=== PATIENT | female | born 1945 | race Caucasian/White ===

== ENCOUNTER 2020-12-09 11:26 | Emergency (ER) | payer MEDICARE ==
[~2020-12-09] VITALS: Ht 165.1 cm; Wt 62.6 kg
--- NOTE | 2020-12-09 11:26 | NUR ---
PT [id number], FRM HOME, C/O GENERALIZED WEAKNESS S/P FALL, -KO. PT IS AAOX4, NOT IN RESPIRATORY DISTRESS, V/S STABLE, KEPT RESTED AND COMFORTABLE. WILL CONTINUE TO MONITOR.
--- NOTE | 2020-12-09 11:31 | NUR ---
SEEN AND EXAMINED BY .
--- NOTE | 2020-12-09 11:50 | NUR ---
IV LINE ESTABLISHED BLOOD DRAWN AND SENT TO LAB.
--- NOTE | 2020-12-09 12:00 | NUR ---
URINE SPECIMEN COLLECTED AND SENT TO LAB.
[2020-12-09 12:04] LABS: BASOPHILS # (AUTO) 0.1 K/uL (0.0-0.2); BASOPHILS % (AUTO) 0.8 % (0.0-2.0); EOSINOPHILS % (AUTO) 0.9 % (0.0-6.0); HEMATOCRIT 37 % (33-45); HEMOGLOBIN 12.5 g/dL (11.5-14.8); LYMPHOCYTES # (AUTO) 1.6 K/uL (0.8-4.8); LYMPHOCYTES % (AUTO) 11.9 % (20.0-44.0); MEAN CORPUSCULAR HGB CONC 34 g/dl (31.0-36.0); MEAN CORPUSCULAR VOLUME 94 fL (82-100); MONOCYTES # (AUTO) 1.7 K/uL (0.1-1.30); MONOCYTES % (AUTO) 12.3 % (2.0-12.0); NEUTROPHILS # (AUTO) 10.2 K/uL (1.8-8.9); NEUTROPHILS % (AUTO) 74.1 % (43.0-81.0); PLATELET COUNT (AUTO) 292 K/uL (150-450); RED BLOOD CELL COUNT(AUTO) 3.96 MIL/uL (4.0-5.2); WHITE BLOOD COUNT (AUTO) 13.7 K/uL (4.3-11.0)
[2020-12-09 12:12] LABS: CALCIUM, SERUM 8.6 mg/dL (8.5-10.1); CARBON DIOXIDE 27 mmol/L (21-32); CHLORIDE 104 mmol/L (98-107); CREATININE 0.7 mg/dL (0.6-1.3); GLUCOSE 112 mg/dL (74-106); POTASSIUM 3.6 mmol/L (3.5-5.1); SODIUM SERUM 141 mmol/L (136-145); UREA NITROGEN, BLOOD 21 mg/dL (7-18)
--- NOTE | 2020-12-09 12:29 | NUR ---
MILITARY ANALYST AT BEDSIDE FOR XRAY.
[2020-12-09 12:48] LABS: BILIRUBIN,URINE SMALL (NEGATIVE); COLOR,URINE DARK YELLOW (YELLOW); LEUKOCYTE ESTERASE ,URINE NEGATIVE (NEGATIVE); NITRITE, URINE NEGATIVE (NEGATIVE); PROTEIN,URINE TRACE mg/dl (NEGATIVE); UGLUCOSE NEGATIVE (NEGATIVE); UROBILINOGEN,URINE 0.2 EU/dL (0.2)
--- NOTE | 2020-12-09 13:15 | NUR ---
PT ABLE TO WALK WITH OUT ASSISTANCE. AWARE.
[2020-12-09 13:16] LABS: BACTERIA,URINE Few /HPF (None Seen); SQUAMOUS EPITHELIAL CELL,UR Few /HPF (None Seen)
[2020-12-09] MEDS ORDERED: CEPH500C2 PO (13:25)
--- NOTE | 2020-12-09 13:34 | NUR ---
[facility] CALLED ETA 45 MINS. NKECHI
--- NOTE | 2020-12-09 14:10 | NUR ---
DAUGHTER AT BEDSIDE.
--- NOTE | 2020-12-09 14:20 | NUR ---
IV removed. Catheter intact and site benign. Pressure and 4x4 applied to site. No bleeding noted.
--- NOTE | 2020-12-09 14:23 | NUR ---
REPORT GIVEN TO EMT FOR PT TRANSFER BACK HOME. AT HOME AWARE AND DAUGHTER.
[2020-12-09 14:24] VITALS: BP 123/70
== END 2020-12-09 14:25 | disposition home or self-care (01) ==
LOC: ER 11:33
DX: N39.0 Urinary tract infection, site not specified (principal); Z88.2 Allergy status to sulfonamides; R53.1 Weakness; W19.XXXA Unspecified fall, initial encounter; Y93.89 Activity, other specified; Y92.098 Other place in other non-institutional residence as the place of occurrence of the external cause; Y99.8 Other external cause status
CPT/HCPCS: 36415; 70450-TC; 71045-TC; 80048-TC; 81001; 84484-TC; 85025-TC

== ENCOUNTER 2020-12-11 14:59 | Inpatient (IN) | payer MEDICARE ==
[~2020-12-11] VITALS: Ht 165.1 cm; Wt 62.3 kg
[~2020-12-11 14:59] MED LIST: CEPH500C2 PO
--- NOTE | 2020-12-11 15:20 | NUR ---
TO ER BED 1, AWAITING MD WARE
--- NOTE | 2020-12-11 15:25 | NUR ---
PATIENT CLEANED, PLACED ON MONITOR, SALINE LOCK ESTABLISHED, UNABLE TO OBTAIN BLOOD, LAB CALLED.
--- NOTE | 2020-12-11 16:00 | NUR ---
SEEN BY DR SILVA, ORDERS GIVEN, URINE SENT TO LAB
[2020-12-11 16:14] LABS: BASOPHILS # (AUTO) 0.1 K/uL (0.0-0.2); BASOPHILS % (AUTO) 0.5 % (0.0-2.0); EOSINOPHILS % (AUTO) 0.6 % (0.0-6.0); HEMATOCRIT 41 % (33-45); HEMOGLOBIN 13.6 g/dL (11.5-14.8); LYMPHOCYTES # (AUTO) 1.2 K/uL (0.8-4.8); LYMPHOCYTES % (AUTO) 9.3 % (20.0-44.0); MEAN CORPUSCULAR HGB CONC 33 g/dl (31.0-36.0); MEAN CORPUSCULAR VOLUME 95 fL (82-100); MONOCYTES # (AUTO) 1.4 K/uL (0.1-1.30); MONOCYTES % (AUTO) 11.1 % (2.0-12.0); NEUTROPHILS # (AUTO) 10.1 K/uL (1.8-8.9); NEUTROPHILS % (AUTO) 78.5 % (43.0-81.0); PLATELET COUNT (AUTO) 266 K/uL (150-450); RED BLOOD CELL COUNT(AUTO) 4.35 MIL/uL (4.0-5.2); WHITE BLOOD COUNT (AUTO) 12.9 K/uL (4.3-11.0)
[2020-12-11] MEDS ORDERED: MEMA10TA PO (16:17)
[2020-12-11] MEDS ORDERED: DONE10TA44 PO (16:17)
[2020-12-11] MEDS ORDERED: ANAS1TAB50 PO (16:17)
[2020-12-11 16:27] LABS: ALANINE AMINOTRANSFERASE 33 U/L (12-78); ALBUMIN 2.9 g/dL (3.4-5.0); ALCOHOL, BLOOD < 3 mg/dL (0-0); ALKALINE PHOSPHATASE 66 U/L (46-116); ASPARTATE AMINOTRANSFERASE 52 U/L (15-37); BILIRUBIN,DIRECT 0.2 mg/dL (0.0-0.2); BILIRUBIN,TOTAL 0.7 mg/dL (0.2-1.0); CALCIUM, SERUM 8.4 mg/dL (8.5-10.1); CARBON DIOXIDE 23 mmol/L (21-32); CHLORIDE 104 mmol/L (98-107); CREATININE 0.6 mg/dL (0.6-1.3); GLUCOSE 90 mg/dL (74-106); POTASSIUM 3.3 mmol/L (3.5-5.1); SODIUM SERUM 139 mmol/L (136-145); TOTAL PROTEIN, SERUM 6.5 g/dL (6.4-8.2); UREA NITROGEN, BLOOD 16 mg/dL (7-18)
[2020-12-11 16:40] LABS: ACETAMINOPHEN < 0 ug/ml (10-30)
[2020-12-11 17:02] LABS: BILIRUBIN,URINE Negative (NEGATIVE); COLOR,URINE YELLOW (YELLOW); LEUKOCYTE ESTERASE ,URINE Trace (NEGATIVE); NITRITE, URINE Positive (NEGATIVE); PH,URINE 5.5 (5.0-8.0); PROTEIN,URINE Trace mg/dl (NEGATIVE); UGLUCOSE Negative (NEGATIVE); UROBILINOGEN,URINE 0.2 EU/dL (0.2)
[2020-12-11 17:16] LABS: CREATINE KINASE, TOTAL 1209 U/L (26-192); THYROID STIMULATING HORMONE 1.262 uIU/mL (0.358-3.74)
[2020-12-11 17:31] LABS: BACTERIA,URINE Moderate /HPF (None Seen); SQUAMOUS EPITHELIAL CELL,UR Few /HPF (None Seen)
[2020-12-11] MEDS ORDERED: POTASSIUM CHLORIDE 20 MEQ TAB.PRT.SR PO ONE ×2 (17:49→18:00)
[2020-12-11] MEDS ORDERED: MEROPENEM 1,000 MG in IV NS 0.9% 100 ML IV ONE (18:00)
[2020-12-11] MEDS ORDERED: IV NS 0.9% 500 ML BAG IV ONE (18:30)
--- NOTE | 2020-12-11 18:49 | NUR ---
BED ASSIGNED IS 307-2
[2020-12-11] MEDS ORDERED: ACETAMINOPHEN 325 MG TABLET PO PRN (19:00)
[2020-12-11] MEDS ORDERED: Z GUARD REMEDY 2 OZ OINT TP PRN (19:00)
[2020-12-11] MEDS ORDERED: ZOLPIDEM TARTRATE 5 MG TABLET PO PRN (19:00)
[2020-12-11] MEDS ORDERED: MAG HYDROX/AL HYDROX/SIMETH 30 ML UDC PO PRN (19:00)
[2020-12-11] MEDS ORDERED: ONDANSETRON HCL/PF 4 MG/2 ML VIAL IVP PRN (19:00)
[2020-12-11] MEDS ORDERED: MAGNESIUM HYDROXIDE 30 ML UDC PO PRN (19:00)
--- NOTE | 2020-12-11 20:19 | NUR ---
REPORT GIVEN TO CHRISTINA AGUSTIN
--- NOTE | 2020-12-11 20:35 | NUR ---
MS IRONWORKER MACHINE OPERATOR NOTES REPORT RECEIVED FROM MATT ER NURSE. PATIENT TRANSFERRED ON THE FLOOR AT THIS TIME VIA GURNEY. ALERT AND ORIENTED TO NAME ONLY. WHEN ASKED QUESTIONS PATIENT SEEM TO BE SAYING "YES" TO EVERYTHING AND SEEMS CONFUSED. NO S/S OF APPARENT DISTRESS. NO C/O PAIN AT THIS TIME. PATIENT ADMITTED FOR IN PATIENT SERVICES, MED/SURG. ID BAND RENEWED AND ON PATIENT. BELONGINGS LIST DONE AND CHARTED. WOUND PICTURES TAKEN AND CHARTED. PATIENT HAS WEAVER CATHETER IN, DRAINING DARK YELLOW URINE. SAFETY IN PLACE: BED IN LOWEST, LOCKED POSITION. CALL LIGHT WITHIN REACH. NO NEEDS AT THIS TIME. WILL START WITH IV FLUIDS AND WILL CONTINUE TO MONITOR.
--- NOTE | 2020-12-11 20:35 | NUR ---
MS AUTOMOTIVE QUALITY ENGINEER NOTE PATIENT ADMITTING V/S FOLLOWS: BP- 135/61, P- 81 BPM, RR- 18 BPM, T- 98.1, 02 SAT- 99% ROOM AIR, WT- 137.5 LBS.
--- NOTE | 2020-12-11 20:40 | NUR ---
PT WAS TANSFERRED TO THIRD FLOOR UNDER ACLS
[2020-12-11 20:45] VITALS: BP 135/61
[2020-12-11] MEDS: IV NS 0.9% 1,000 ML IV PRN (21:22)
[2020-12-11] MEDS: CEFTRIAXONE 1 G in IV D5W 50 ML IV SCH (21:22)
[2020-12-11 22:24] VITALS: BP 135/61
[2020-12-12 04:00] VITALS: BP 119/75
[2020-12-12 06:43] LABS: BASOPHILS # (AUTO) 0.1 K/uL (0.0-0.2); BASOPHILS % (AUTO) 1.3 % (0.0-2.0); EOSINOPHILS % (AUTO) 2.2 % (0.0-6.0); HEMATOCRIT 38 % (33-45); HEMOGLOBIN 12.7 g/dL (11.5-14.8); LYMPHOCYTES # (AUTO) 1.6 K/uL (0.8-4.8); LYMPHOCYTES % (AUTO) 14.5 % (20.0-44.0); MEAN CORPUSCULAR HGB CONC 34 g/dl (31.0-36.0); MEAN CORPUSCULAR VOLUME 94 fL (82-100); MONOCYTES # (AUTO) 1.5 K/uL (0.1-1.30); MONOCYTES % (AUTO) 13.4 % (2.0-12.0); NEUTROPHILS # (AUTO) 7.8 K/uL (1.8-8.9); NEUTROPHILS % (AUTO) 68.6 % (43.0-81.0); PLATELET COUNT (AUTO) 292 K/uL (150-450); WHITE BLOOD COUNT (AUTO) 11.3 K/uL (4.3-11.0)
--- NOTE | 2020-12-12 06:52 | NUR ---
MS RN NOTES PATIENT IN BED. A/OX 1 ONLY TO NAME. NO S/S OF APPARENT DISTRESS. NO C/O PAIN AT THIS TIME. IV NS RUNNING @ 100CC/HR. WEAVER DRAINING CLEAR, DARK YELLOW URINE. BLE EDEMA NON-PITTING NOTED. WOUND PICTURE TAKEN AND CHARTED. SAFETY KEPT IN PLACE THE WHOLE SHIFT. ALL NEEDS ATTENDED. WILL ENDORSE CARE TO MORNING SHIFT RN.
[2020-12-12 07:24] LABS: CREATININE 0.6 mg/dL (0.6-1.3); PHOSPHORUS 2.7 mg/dL (2.5-4.9); POTASSIUM 3.4 mmol/L (3.5-5.1)
[2020-12-12 07:49] VITALS: BP 134/65
[2020-12-12] MEDS: IV NS 0.9% 1,000 ML IV PRN (09:09)
--- NOTE | 2020-12-12 09:29 | NUR ---
WOUND CARE CONSULT: PT PRESENTS WITH DISCOLORATION TO FEET AND ANKLES WITH RESOLVING EDEMA AND ABRASIONS TO BILATERAL ELBOWS, PRESENT ON ADMISSION. RECOMMENDATIONS MADE FOR SKIN PROTECTION AND WOUND CARE. DISCUSSED WITH NURSING STAFF. MD IN AGREEMENT WITH PLAN OF CARE. Addendum: 12/12/20 at 0931 by BRITT REED WNDNU CURRENT AGUILAR SCORE IS 17.
[2020-12-12] MEDS: MEMANTINE HCL 5 MG TABLET PO SCH ×2 (09:31→17:45)
[2020-12-12] MEDS: ANASTROZOLE 1 MG TABLET PO SCH (09:31)
[2020-12-12] MEDS: DONEPEZIL 5 MG TABLET PO SCH (09:31)
--- NOTE | 2020-12-12 10:00 | NUR ---
pt. confused and pulled out iv.to restart.
[2020-12-12] MEDS ORDERED: POTASSIUM CHLORIDE 20 MEQ TAB.PRT.SR PO SCH (12:30)
--- NOTE | 2020-12-12 14:06 | NUR ---
potassium replacement given.
--- NOTE | 2020-12-12 14:38 | NUR ---
DR. BATES CALLED WITH [facility]. [facility] AND [facility] ABN. LABS
--- NOTE | 2020-12-12 15:05 | NUR ---
iv restarted lt. forearm with 22 gauge angio.pt. tolerated well.
[2020-12-12 15:54] VITALS: BP 124/67
--- NOTE | 2020-12-12 16:57 | NUR ---
pulled out iv again,restart rt wrist #22 angio
--- NOTE | 2020-12-12 17:20 | NUR ---
due to pulling out of iv line,dr. fuller called.ok'd order for restraint.
--- NOTE | 2020-12-12 17:54 | NUR ---
due to restlessness,given tylenol 650 mg po.
--- NOTE | 2020-12-12 18:15 | NUR ---
just received call from pt. dompositive for mrsa in nares.
--- NOTE | 2020-12-12 18:24 | NUR ---
pt. pulled mittens off,now soft wrist restraints applied.
--- NOTE | 2020-12-12 19:54 | NUR ---
MS RN OPENING PATIENT IN BED WITH VISITORS IN THE ROOM. NO S/S OF APPARENT DISTRESS. NO C/O PAIN AT THE MOMENT. IV FLUID RUNNING @100 CC/HR. PATIENT WRIST RESTRAINTS NOTED TAKEN OFF THE PATIENT -- PATIENT RE-DIRECTABLE AT THE MOMENT BUT WILL CONTINUE TO MONITOR WITH THE RESTRAINT VACATION. SAFETY IN PLACE: BED IN LOWEST, LOCKED POSITION. CALL LIGHT WITHIN REACH. WILL CONTINUE TO MONITOR.
[2020-12-12 20:00] VITALS: BP 114/65
--- NOTE | 2020-12-12 20:11 | NUR ---
MS RN NOTES BACTROBAN OINT. NOT IN BEDSIDE OR THE PATIENT'S CASSETTE. CALLED THE PHARMACY AND THEY SAID THEY HAVE IT 10-20 MINUTES.
[2020-12-12] MEDS: CEFTRIAXONE 1 G in IV D5W 50 ML IV SCH (20:46)
[2020-12-12] MEDS: MUPIROCIN OINT 2% 22 GM TUBE NS SCH ×3 (20:59→21:12)
--- NOTE | 2020-12-12 21:20 | NUR ---
MS RN NOTES PATIENT GIVEN LATE DOSE OF BACTROBAN BECAUSE PHARMACY JUST BROUGHT IT UP.
[2020-12-13] MEDS: IV NS 0.9% 1,000 ML IV PRN (02:16)
[2020-12-13 06:25] LABS: BASOPHILS # (AUTO) 0.1 K/uL (0.0-0.2); BASOPHILS % (AUTO) 1.4 % (0.0-2.0); HEMATOCRIT 37 % (33-45); HEMOGLOBIN 12.7 g/dL (11.5-14.8); LYMPHOCYTES # (AUTO) 2.6 K/uL (0.8-4.8); LYMPHOCYTES % (AUTO) 26.6 % (20.0-44.0); MEAN CORPUSCULAR HGB CONC 34 g/dl (31.0-36.0); MEAN CORPUSCULAR VOLUME 93 fL (82-100); MONOCYTES # (AUTO) 1.5 K/uL (0.1-1.30); MONOCYTES % (AUTO) 15.6 % (2.0-12.0); NEUTROPHILS # (AUTO) 5.2 K/uL (1.8-8.9); NEUTROPHILS % (AUTO) 53.4 % (43.0-81.0); PLATELET COUNT (AUTO) 284 K/uL (150-450); WHITE BLOOD COUNT (AUTO) 9.8 K/uL (4.3-11.0)
[2020-12-13 07:01] LABS: CALCIUM, SERUM 7.8 mg/dL (8.5-10.1); CREATININE 0.6 mg/dL (0.6-1.3); POTASSIUM 3.4 mmol/L (3.5-5.1)
--- NOTE | 2020-12-13 07:04 | NUR ---
MS RN NOTES PATIENT IN BED. A/OX 1 ONLY TO NAME. NO S/S OF APPARENT DISTRESS. NO C/O PAIN AT THIS TIME. IV NS RUNNING @ 100CC/HR. WEAVER DRAINING CLEAR, DARK YELLOW URINE. PATIENT DID WELL WITHOUT THE MITTENS LAST NIGHT. SAFETY KEPT IN PLACE THE WHOLE SHIFT. ALL NEEDS ATTENDED. WILL ENDORSE CARE TO MORNING SHIFT RN.
[2020-12-13 08:00] VITALS: BP 124/60
--- NOTE | 2020-12-13 08:00 | NUR ---
MS RN OPENING RECEIVED PATIENT LYING IN BED, AWAKE. A/O X1 - PATIENT HAS DEMENTIA AND IS CONFUSED. STABLE ON ROOM AIR - NO SOB OR DISTRESS/DISCOMFORT NOTED. IV ACCESS TO RIGHT WRIST # 20 - RUNNING NS @ 100ML/HR. WEAVER CATHETER INTACT AND IN PLACE - DRAINING CLEAR, YELLOW URINE TO GRAVITY. PATIENT IS AMBULATORY WITH ASSIST. SAFETY MEASURES IN PLACE. CALL LIGHT WITHIN REACH. WILL CONTINUE TO MONITOR.
[2020-12-13] MEDS: DONEPEZIL 5 MG TABLET PO SCH (08:31)
[2020-12-13] MEDS: MUPIROCIN OINT 2% 22 GM TUBE NS SCH ×2 (08:31→20:25)
[2020-12-13] MEDS: MEMANTINE HCL 5 MG TABLET PO SCH ×2 (08:31→17:11)
[2020-12-13] MEDS: ANASTROZOLE 1 MG TABLET PO SCH (08:31)
[2020-12-13] MEDS ORDERED: POTASSIUM CHLORIDE 20 MEQ TAB.PRT.SR PO ONE (09:00)
[2020-12-13 16:00] VITALS: BP 147/59
--- NOTE | 2020-12-13 19:00 | NUR ---
MS RN CLOSING NOTE PATIENT CURRENTLY SITTING IN BED, AWAKE. A/O X1 - PATIENT HAS DEMENTIA AND IS CONFUSED - HAS GOTTEN OUT OF BED MULTIPLE TIMES THIS SHIFT SAYING SHE IS GOING HOME. STABLE ON ROOM AIR - NO SOB OR DISTRESS/DISCOMFORT NOTED. IV ACCESS TO RIGHT WRIST # 20 - RUNNING NS @ 100ML/HR. PATIENT PULLED OUT WEAVER CATHETER - CHARGE NURSE AND MD AWARE - PATIENT TO DISCHARGE IN AM SO WEAVER WAS D/C'D. PATIENT IS AMBULATORY WITH ASSIST. SAFETY MEASURES IN PLACE. CALL LIGHT WITHIN REACH. WILL ENDORSE TO DOOR SLINGER NURSE FOR BALWINDER.
--- NOTE | 2020-12-13 19:16 | NUR ---
CONTINUITY OF CARE Patient walking inside her room, appears anxious. Patient is A/O x1 to self only, Hx. Dementia. Reoriented and assisted back to bed. Oxygen saturation 96% on room air, no c/o sob. IVF not infusing, per RN report patient anxious, pacing in her room, unable to stay in bed lying or sitting. Recently on wrist restraints d/t pulling out tubes. Place call light within reach, bed alarm on, maintained safety.
[2020-12-13 20:00] VITALS: BP 146/64
[2020-12-13] MEDS: CEFTRIAXONE 1 G in IV D5W 50 ML IV SCH (20:22)
--- NOTE | 2020-12-13 21:30 | NUR ---
UNABLE TO SLEEP Patient trying to sleep, eyes closed but unable to sleep. Did not have a good sleep prior night per RN report. Given Ambien, will reassess.
[2020-12-14] MEDS: IV NS 0.9% 1,000 ML IV PRN (00:34)
--- NOTE | 2020-12-14 06:37 | NUR ---
END OF SHIFT REPORT Patient is A/O x1 to self only, Forgetful, with confusion. On IV Rocephin, afebrile. Slept well with Ambien, upon waking up, confused and pulled out IV peripheral line by herself, frequent reorientation needed. Plan for dc to SNF. Will endorse to oncoming RN.
[2020-12-14 06:46] LABS: BASOPHILS # (AUTO) 0.1 K/uL (0.0-0.2); BASOPHILS % (AUTO) 0.9 % (0.0-2.0); EOSINOPHILS % (AUTO) 2.5 % (0.0-6.0); HEMATOCRIT 40 % (33-45); HEMOGLOBIN 13.2 g/dL (11.5-14.8); LYMPHOCYTES # (AUTO) 2.5 K/uL (0.8-4.8); MEAN CORPUSCULAR HGB CONC 33 g/dl (31.0-36.0); MEAN CORPUSCULAR VOLUME 94 fL (82-100); MONOCYTES # (AUTO) 1.4 K/uL (0.1-1.30); MONOCYTES % (AUTO) 13.6 % (2.0-12.0); NEUTROPHILS # (AUTO) 6.1 K/uL (1.8-8.9); PLATELET COUNT (AUTO) 287 K/uL (150-450); RED BLOOD CELL COUNT(AUTO) 4.26 MIL/uL (4.0-5.2); WHITE BLOOD COUNT (AUTO) 10.3 K/uL (4.3-11.0)
[2020-12-14 07:27] LABS: CALCIUM, SERUM 8.2 mg/dL (8.5-10.1); CREATININE 0.6 mg/dL (0.6-1.3); POTASSIUM 3.4 mmol/L (3.5-5.1)
[2020-12-14] MEDS ORDERED: SULF1TAB48 PO (07:42)
[2020-12-14 08:26] VITALS: BP 139/70
[2020-12-14] MEDS: ANASTROZOLE 1 MG TABLET PO SCH (09:02)
[2020-12-14] MEDS: MEMANTINE HCL 5 MG TABLET PO SCH (09:02)
[2020-12-14] MEDS: DONEPEZIL 5 MG TABLET PO SCH (09:02)
[2020-12-14] MEDS: MUPIROCIN OINT 2% 22 GM TUBE NS SCH (09:03)
[2020-12-14] MEDS ORDERED: POTASSIUM CHLORIDE 20 MEQ TAB.PRT.SR PO ONE (09:30)
--- NOTE | 2020-12-14 15:10 | NUR ---
MS ROVING HAND NOTE PATIENT DISCHARGED VIA AMBULANCE @ 1508. PATIENT STABLE, NO SOB OR DISTRESS/DISCOMFORT NOTED. NO PAIN NOTED AT THIS TIME. PATIENT REFUSED DISCHARGE PHOTOS - DID NOT WANT TO BE TOUCHED. PATIENT WAS KEPT CLEAN AND DRY THROUGHOUT SHIFT. NO IV ACCESS TO REMOVE. WRISTBAND REMOVED. ALL EXITCARE AND EDUCATION EXPLAINED TO PATIENT AND GIVEN TO EMT'S. ATTEMPTED TO GIVE REPORT MULTIPLE TIMES TO RECEIVING FACILITY BUT WAS PUT ON HOLD FOR 10 MINUTES OR MORE. WILL TRY AGAIN. PATIENT ACCOMPANIED TO LOBBY BY EMT'S VIA Pint Please.
--- NOTE | 2020-12-14 15:35 | NUR ---
MS RN NOTE MADE SEVERAL ATTEMPTS TO CALL AND GIVE REPORT TO [facility] AROUND 1400. RECEIVING REPEATEDLY PUT ME ON HOLD AND DID NOT WANT TO TAKE REPORT. ALL 3 TIMES I ATTEMPTED TO CALL AND GIVE REPORT, I WAS PUT ON HOLD FOR 10 MINUTES OR LONGER. PATIENT WAS PICKED UP BY AMBULANCE AT 1510. I ATTEMPTED TO CALL AGAIN AND GIVE REPORT. I CALLED MORE THAN 5 TIMES BUT NO ONE PICKED UP AND THERE WAS NO WAY FOR ME TO LEAVE A MESSAGE. WILL TRY AGAIN LATER.
== END 2020-12-14 15:18 | DRG 689 ==
LOC: ER 16:16 → TELE 19:44 → MED 22:40
PROVIDERS: ADMIT Family Medicine; ATTEND Family Medicine
DX: N39.0 Urinary tract infection, site not specified (principal); G93.41 Metabolic encephalopathy; M62.82 Rhabdomyolysis; E44.0 Moderate protein-calorie malnutrition; Z20.822 Contact with and (suspected) exposure to COVID-19; F03.90 Unspecified dementia, unspecified severity, without behavioral disturbance, psychotic disturbance, mood disturbance, and anxiety; E87.6 Hypokalemia; Z79.811 Long term (current) use of aromatase inhibitors; Z79.899 Other long term (current) drug therapy; R94.31 Abnormal electrocardiogram [ECG] [EKG]; B96.20 Unspecified Escherichia coli [E. coli] as the cause of diseases classified elsewhere; Z88.2 Allergy status to sulfonamides
CPT/HCPCS: 36415; 70450-TC; 71045-TC; 80048-TC; 80061-TC; 80076-TC; 81001; 82550-TC; 82553; 82962-TC; 83735-TC; 84100-TC; 84443-TC; 84484-TC; 85025-TC; 87081-TC; 87086-TC; 87186-TC; 97110-TC; 97116-TC; 97530-TC; C9803; G0378; G0480; J0696; J2185; J7030; J7040; J7060